=== PATIENT | female | born 1985 | race Caucasian/White ===

== ENCOUNTER 2017-05-17 08:05 | Observation (INO) | payer MEDICARE, OTHER ==
[2017-05-16 17:04] VITALS: BMI 32.4
[2017-05-17] VITALS (19 sets, daily range): BP systolic 110–159; BP diastolic 55–125; PULSE 68–100; RESP 12–20; Ht 170.2 cm; Wt 76.0 kg
[~2017-05-17] VITALS: Ht 170.2 cm; Wt 76.0 kg
[~2017-05-17 08:05] MED LIST: DOCU-144 PO; HYDR-3720 PO; ROCURONIUM 50 MG INJ ONE
[2017-05-17] MEDS ORDERED: SOD CHLORIDE 0.9% 1,000 ML IV SCH (11:00)
[2017-05-17] MEDS ORDERED: CEFAZOLIN 2 GM/50 ML (PMX) 50 ML IVPB ONE (11:00)
[2017-05-17] MEDS ORDERED: FENTAnyl 50 MCG/ML VIAL ONE ×3 (12:58→15:27)
[2017-05-17] MEDS ORDERED: MIDAZOLAM 1 MG/ML 2 ML INJ ONE (12:58)
[2017-05-17] MEDS ORDERED: PROPOFOL 20 ML ONE (12:58)
[2017-05-17] MEDS ORDERED: ROCURONIUM 50 MG INJ ONE (12:58)
[2017-05-17] MEDS ORDERED: CEFAZOLIN 1 GM INJ ONE ×2 (13:00→16:03)
[2017-05-17] MEDS: CEFAZOLIN 2 GM/50 ML (PMX) 50 ML IVPB SCH ×2 (13:15→22:34)
--- NOTE | 2017-05-17 13:31 | OPR ---
Date/Time of Note Date/Time of Note DATE: 05/17/17 TIME: 13:28 Operative Report Free Text/Dictation Plastic Surgery Operative Report Preoperative diagnosis: BRCA gene mutation Postoperative diagnosis: same Procedure: Bilateral tissue postie breast reconstruction with alloderm Surgeon:joo Hennessy.:n/a Anesthesia: gen EBL:min IV fluids:per flow sheet Findings:n/a Complications: none Dispo:home Indications for procedure: 32 yo patient presents for bilateral tissue postie breast reconstruction with alloderm. The risks, benefits, and alternatives of performing this procedure were discussed with the patient including the risks of bleeding, infection, wound healing problems, postie extrusion, pain and tightness, need for removal. We discussed that if radiation is involved, it may alter the outcome. The risk of asymmetry and need for revision surgery were also discussed. The patient states that she understands these risks and would like to proceed with the procedure. All questions were answered, no guarantees were given with regards the outcome of this procedure. Description of procedure: The patient was brought to the operating room at [facility] where general anesthesia was induced, and the patient was prepped and draped in the usual sterile fashion. The mastectomy was performed by Dr. Hdz and will be dictated separately. At the completion of that portion of the case, I scrubbed into the case, and irrigated the breasts with extensive antibiotic irrigation to remove all loose fat particles. Next, meticulous hemostasis was achieved with the bipolar cautery. An additional round of irrigation and hemostasis was carried out. Next, the left breast was inspected, and a piece of AlloDerm contour large was opened, rinsed in normal saline to remove the preservative, and was anchored in place medially, inferiorly, and laterally to re-create the lower border of the breast with 2-0 Vicryl suture. A second piece of AlloDerm contour medium was opened, rinsed in normal saline to remove the preservative, and was anchored in place medially , inferiorly, and laterally to re-create the lower border of the breast with 2- 0 Vicryl suture. Next, the right breast was inspected, and a piece of AlloDerm contour large was opened, rinsed in normal saline to remove the preservative, and was anchored in place medially, inferiorly, and laterally to re-create the lower border of the breast with 2-0 Vicryl suture. A second piece of AlloDerm contour medium was opened, rinsed in normal saline to remove the preservative, and was anchored in place medially, inferiorly, and laterally to re-create the lower border of the breast with 2-0 Vicryl suture. The base width was then measured and was found to be approximately 15cm. Therefore, an [facility] [id number] tissue postie was opened, rinsed in antibiotic irrigation, the air was evacuated, and then gloves were changed and this was inserted into the right breast and was sutured in place with 2-0 Vicryl suture. The same size and style postie was placed in the left breast. an additional round of hemostasis and irrigation was carried out. 420cc of air were injected into each postie, which did not place undue tension on the skin flaps. The alloderm was tacked together with 2-0 vicryl suture. 60 cc of a dilute exparel solution was injected around the breasts, and 2 x 15 Dov drains were inserted through a stab incision in the axilla and were secured in place with 2-0 nylon suture. The breasts were then closed with 3-0 Vicryl suture and 4-0 Monocryl suture and was dressed with Dermabond, Tegaderm, and an ABD. the patient tolerated this procedure well, there were no complications, she will remain tonight. APRIL RICHARDS MD May 17, 2017 13:31
[2017-05-17] MEDS ORDERED: BUPIVACAINE LIPOSOME/PF 266 MG/20 ML VIAL INFIL SCH (14:00)
[2017-05-17] MEDS ORDERED: PHENYLephrine (100 MCG/ML) 5ML SYG ONE (14:05)
[2017-05-17] MEDS ORDERED: LACTATED RINGER'S 1,000 ML IV SCH (14:10)
--- NOTE | 2017-05-17 14:21 | HPN ---
Date/Time of Note Date/Time of Note DATE: 05/17/17 TIME: 14:21 Interval H&P Admission Note Pt. seen H&P reviewed: No system changes APRIL RICHARDS MD May 17, 2017 14:21
[2017-05-17] MEDS ORDERED: ONDANSETRON 4 MG INJ IV PRN ×3 (14:30→15:00)
[2017-05-17] MEDS ORDERED: EPHEDrine SULFATE 50 MG/5 ML SYG IV PRN (14:30)
[2017-05-17] MEDS ORDERED: DIPHENHYDRAMINE 50 MG INJ IV PRN ×2 (14:30)
[2017-05-17] MEDS ORDERED: HYDROmorphONE 1 MG/ML SYG IV PRN (14:30)
[2017-05-17] MEDS ORDERED: FENTAnyl 50 MCG/ML VIAL IV PRN ×3 (14:30)
[2017-05-17] MEDS ORDERED: MEPERIDINE 25 MG INJ IV PRN (14:30)
[2017-05-17] MEDS ORDERED: METOCLOPRAMIDE 10 MG INJ IV PRN (14:30)
[2017-05-17] MEDS ORDERED: HYDROCODONE/APAP (10/325) TAB PO PRN (14:30)
[2017-05-17] MEDS ORDERED: LABETALOL HCL 20MG INJ IV PRN (14:30)
[2017-05-17] MEDS ORDERED: ACETAMINOPHEN 325 MG TAB PO PRN (14:30)
[2017-05-17] MEDS ORDERED: morphine (1 MG/ML) 10ML SYRINGE IV PRN ×3 (14:30)
[2017-05-17] MEDS ORDERED: DEXAMETHASONE 4 MG/ML 1 ML INJ ONE (14:52)
[2017-05-17] MEDS ORDERED: ONDANSETRON 4 MG INJ ONE (14:52)
[2017-05-17] MEDS ORDERED: METOCLOPRAMIDE 10 MG INJ ONE (14:52)
[2017-05-17] MEDS ORDERED: GENTAMICIN 80 MG INJ ONE (14:58)
--- NOTE | 2017-05-17 14:58 | OPR ---
Date/Time of Note Date/Time of Note DATE: 05/17/17 TIME: 14:56 Operative Report Preoperative Diagnosis Left breast cancer brachial positive mutation need for bilateral prophylactic mastectomy Postoperative Diagnosis Same Operation/Procedure Performed Bilateral prophylactic mastectomy Surgeon: JEOVANY GALINDO MD Co-Surgeon: APRIL RICHARDS MD Anesthesia: general Estimated Blood Loss: 150 - 200 ml's Complications: None JEOVANY GALINDO MD May 17, 2017 14:58
[2017-05-17] MEDS ORDERED: ACETAMINOPHEN 1000MG/100ML IV 100 ML IVPB PRN (15:00)
[2017-05-17] MEDS ORDERED: POLYMYXIN/BACITRACIN 1L IRRIG IRR ONE (16:34)
[2017-05-17] MEDS ORDERED: NEOSTIGMINE 3 MG/3 ML SYRINGE ONE (17:00)
[2017-05-17] MEDS ORDERED: GLYCOPYRROLATE 0.4 MG INJ ONE (17:00)
[2017-05-17] MEDS ORDERED: MEPERIDINE 100 MG INJ ONE (17:02)
--- NOTE | 2017-05-17 17:04 | OPR ---
Date/Time of Note Date/Time of Note DATE: 05/17/17 TIME: 17:03 Operative Report Preoperative Diagnosis BRCA gene mutation Surgeon: APRIL RICHARDS MD Co-Surgeon: SHANTHI MARIO MD Anesthesia: general Estimated Blood Loss: minimal Grafts/Implants bilateral tissue expanders and alloderm Complications: None APRIL RICHARDS MD May 17, 2017 17:04
[2017-05-17] MEDS: D5W-0.45 NACL + KCL 20 MEQ 1,000 ML IV SCH ×2 (20:08→22:42)
[2017-05-17] MEDS: morphine 4 MG/ML VIAL IV PRN ×2 (20:33→22:39)
[2017-05-18 02:00] VITALS: BP 112/53; RESP 19
[2017-05-18] MEDS: morphine 4 MG/ML VIAL IV PRN ×4 (04:25→15:10)
[2017-05-18] MEDS: D5W-0.45 NACL + KCL 20 MEQ 1,000 ML IV SCH ×2 (06:31→14:47)
[2017-05-18] MEDS: CEFAZOLIN 2 GM/50 ML (PMX) 50 ML IVPB SCH (06:31)
[2017-05-18 07:34] VITALS: BP 114/54; RESP 20
--- NOTE | 2017-05-18 08:17 | PN ---
Date/Time of Note Date/Time of Note DATE: 05/18/17 TIME: 08:16 Assessment/Plan Lines/Catheters IV Catheter Type (from [facility]): Peripheral IV Sarah in Place (from [facility]): No Assessment/Plan Chief Complaint/Hosp Course doing well discharge to home today follow up 1 week RX/Instructions given Problems: Subjective 24 Hr Interval Summary no acute events overnight Exam/Review of Systems Vital Signs Vitals Vital Signs Date Time Temp Pulse Resp B/P Pulse Ox O2 Delivery O2 Flow Rate FiO2 05/18/17 07:34 98.5 64 20 114/54 96 05/17/17 22:30 Nasal Cannula Intake and Output 05/17/17 05/17/17 05/18/17 15:00 23:00 07:00 Intake Total 1600 ml 50 ml 1460 ml Output Total 100 ml 90 ml 135 ml Balance 1500 ml -40 ml 1325 ml Exam Free Text/Dictation General: pleasant, cooperative breasts: incisions c/d/i, no erythema. APRIL RICHARDS MD May 18, 2017 08:17
--- NOTE | 2017-05-18 08:19 | DS ---
Date/Time of Note Date/Time of Note DATE: 05/18/17 TIME: 08:18 Discharge Summary Admission/Discharge Info Admit Date/Time May 17, 2017 at 14:56 Discharge Date/Time 05/18/17, 1200 Discharge Diagnosis BRCA gene mutation Patient Condition: Good Procedures bilateral mastectomy and tissue hand sole sewer reconstruction with alloderm Hospital Course doing well discharge to home today follow up 1 week RX/Instructions given Home Meds Discontinued Reported Medications Hydrocodone Bit-Acetaminophen* ([place]*) Unknown Strength Tablet, PO Q4H Y for PAIN, TAB 11/27/15 Docusate Sodium* (Colace*) 100 Mg Capsule, 100 MG PO Q24H Y for CONSTIPATION, # 30 CAP 11/27/15 Follow-up Plan Dr. Ya, 1 week Primary Care Provider Time spent on discharge: < 30 minutes Pending Labs Laboratory Tests Test 05/18/17 05:01 Lab Scanned Report [id number] APRIL YA MD May 18, 2017 08:19
[2017-05-18 14:00] VITALS: BP 124/56; RESP 18
--- NOTE | 2017-05-25 13:50 | OPR ---
DATE OF OPERATION: 05/17/2017 PREOPERATIVE DIAGNOSES: 1. History of breast cancer. 2. Positive for breast cancer gene mutation. 3. Need for bilateral prophylactic mastectomy. ANESTHESIA: General ANESTHESIOLOGIST: SURGEON: Dr. Hdz and Dr. Ya. SILO ERECTOR: Dr. Mar. INDICATIONS FOR PROCEDURE: Patient was previously treated for a breast cancer; however, she met NCCN guidelines based on her young age of 30 and was found to be positive for RCA mutation. She was counseled as to the need for bilateral prophylactic mastectomy. She consented and was scheduled for surgery. OPERATIVE PROCEDURE: Patient was brought to the operating theater, placed under general endotracheal tube anesthesia. The breast and axillary regions were prepped and draped bilaterally. Attention was first directed to the left side. Dr. Ya had previously demarcated at the planned incision in elliptical fashion around the nipple-areolar complex, including some of the skin overlying the breast. It was carried out with 15 blade scalpel. Subcutaneous tissue was dissected with cautery. Skin edges were then elevated with skin hooks and skin flaps were created sequentially using cautery, first superiorly to the clavicle, then medially to the sternal border, inferiorly to the inframammary fold, and then laterally until the latissimus dorsi muscle was identified throughout its course. The mastectomy then took place from medial to lateral using cautery at the border of the pectoralis major muscle. The pectoralis minor muscle was identified. Additional resection of the axillary tail of Allen took place using cautery. Specimen was transected, oriented and sent for permanent pathologic analysis. Residual bleeding was controlled with cautery. The wound was then packed with warm saline-soaked lap pads. Attention was then directed to the right side. Again, the previously demarcated surgical incision was incised with a 15 blade scalpel. Subcutaneous tissue was dissected with cautery. Skin edges were elevated with Allis- Porfirio clamps and skin flaps were created using cautery, first to the clavicle, then to the sternal border, then to the inframammary fold and finally to the latissimus dorsi muscle, was identified throughout its course. Mastectomy then took place from medial to lateral using cautery. At the border of the pectoralis major muscle, the pectoralis minor muscle was identified. Continued dissection of the axillary tail of Allen took place. Specimen was transected oriented and sent for permanent pathologic analysis. The wound was irrigated. Residual bleeding was controlled with cautery and the wound was then packed with warm saline gauze. At this point, Dr. Ya entered the room and took over control of the operation. He will dictate his part separately, which is immediate reconstruction with an horticultural specialty grower inside and AlloDerm. ESTIMATED BLOOD LOSS: For Dr. Hdz' portion of the operation was approximately 150 cc. COMPLICATIONS: There were no complications. Dictated By: Steffen Hdz MD /jeffry/clau /Document#: [id number]
[2017-06-02] MEDS ORDERED: DOCU-144 PO (01:49)
[2017-06-02] MEDS ORDERED: PHEN51CR17 RC (01:49)
[2017-06-02] MEDS ORDERED: IBUP200C PO (01:49)
[2017-06-02] MEDS ORDERED: HYDR-902 PO (01:49)
[2017-06-02] MEDS ORDERED: CEPH500C PO (01:49)
[2017-06-02] MEDS ORDERED: SULF1TAB31 PO (04:28)
[2017-06-02] MEDS ORDERED: IBUP-1542 PO (04:31)
== END 2017-05-18 16:55 | disposition home or self-care (01) ==
LOC: SDS 08:05 → MS2 14:56 → SDS 20:08
PROVIDERS: ADMIT Surgery Surgical Oncology; ATTEND Surgery Surgical Oncology
DX: Z15.01 Genetic susceptibility to malignant neoplasm of breast (principal); Z40.01 Encounter for prophylactic removal of breast; Z85.3 Personal history of malignant neoplasm of breast
CPT/HCPCS: 19303; 19357; 84703; 88307; C1762; C1789; C9290; J0690; J1100; J1580; J2175; J2250; J2270; J2405; J2710; J2765; J3010; J3480; Z7500; Z7512; Z7610; G0378; J2370; J7030

== ENCOUNTER 2017-06-01 20:53 | Emergency (ER) | END 2017-06-02 05:14 | disposition home or self-care (01) | DX: R50.82 Postprocedural fever (principal); N39.0 Urinary tract infection, site not specified; R07.9 Chest pain, unspecified; Z87.891 Personal history of nicotine dependence; Z85.3 Personal history of malignant neoplasm of breast | CPT/HCPCS: 36415; 71010; 71275; 80053; 81003; 83605; 85025; 85610; 85730; 87040; 87086; 93005; 93970; 96374; 96375; J0696; J2270; J2405; Q9967; Z7502; Z7610 ==

== ENCOUNTER 2018-06-28 20:38 | Emergency (ER) | END 2018-06-29 02:44 | disposition home or self-care (01) ==